=== PATIENT | female | born 1950 | race African-American/Black ===

== ENCOUNTER 2025-02-27 23:15 | Emergency (ER) | payer OTHER ==
[~2025-02-27] VITALS: Ht 172.7 cm; Wt 82.0 kg
[2025-02-27 23:18] VITALS: TEMP 36.4; O2SAT 98
[2025-02-28] MEDS: LIDOCAINE 5% PATCH TOP SCH (01:06)
[2025-02-28] MEDS: ACETAMINOPHEN 325MG TABLET PO ONE (01:07)
[2025-02-28] MEDS ORDERED: ACET-2708 MT (02:23)
[2025-02-28 03:30] VITALS: BP 137/70; PULSE 65; RESP 18; O2SAT 100
== END 2025-02-28 03:38 | disposition home or self-care (01) ==
LOC: ER 23:15
DX: M25.512 Pain in left shoulder (principal); M79.652 Pain in left thigh; M79.651 Pain in right thigh; E03.9 Hypothyroidism, unspecified; E11.9 Type 2 diabetes mellitus without complications; E78.00 Pure hypercholesterolemia, unspecified; I10 Essential (primary) hypertension; M16.0 Bilateral primary osteoarthritis of hip; W19.XXXA Unspecified fall, initial encounter; Y93.01 Activity, walking, marching and hiking; Y92.000 Kitchen of unspecified non-institutional (private) residence as the place of occurrence of the external cause; Y99.8 Other external cause status
CPT/HCPCS: 71045; 73030; 73551; 93005; 99284